=== PATIENT | female | born 1995 | race Hispanic/Latino ===

== ENCOUNTER 2022-02-20 08:53 | Emergency (ER) | payer MEDICAID, OTHER ==
[~2022-02-20] VITALS: Ht 165.1 cm; Wt 74.8 kg
[~2022-02-20 08:53] MED LIST: ACET5SOL2 PO; FERR-82 PO; PREN1COM PO
[2022-02-20 09:31] LABS: APPEARANCE,URINE Clear (CLEAR); BILIRUBIN,URINE Negative (NEGATIVE); COLOR,URINE Yellow (YELLOW); GLUCOSE, URINE (UA) Negative (NEGATIVE); HCG,QUAL RESULT NEGATIVE (NEGATIVE); KETONES,URINE 40 mg/dL (NEGATIVE); LEUKOCYTE ESTERASE ,URINE Negative (NEGATIVE); NITRATE,URINE Negative (NEGATIVE); OCCULT BLOOD,URINE Negative (NEGATIVE); PH,URINE 7.5 (5.0-8.0); PROTEIN,URINE Negative (NEGATIVE)
[2022-02-20 09:36] LABS: BACTERIA,URINE Rare /HPF (None Seen); RBC,URINE 0-1 /HPF (0-1); SQUAMOUS EPITHELIAL CELL,UR Few /HPF (0-2); WBC,URINE 0-1 /HPF (0-1)
[2022-02-20 09:46] LABS: BASOPHILS % (AUTO) 0.3 % (0.0-5.0); HEMATOCRIT 37.9 % (36-48); LYMPHOCYTES % (AUTO) 11.6 % (21.0-51.0); MEAN CORPUSCULAR HGB CONC 32.7 g/dL (32.0-36.0); MEAN CORPUSCULAR VOLUME 91.8 fL (79-99); MONOCYTES % (AUTO) 4.1 % (3.0-13.0); NEUTROPHILS % (AUTO) 83.4 % (40.0-77.0); PLATELET COUNT (AUTO) 261 K/uL (130-400); RED BLOOD CELL COUNT(AUTO) 4.13 MIL/uL (4.00-5.50); RED CELL DISTRIBUTION WIDTH 13.2 % (11.0-15.5); WHITE BLOOD COUNT (AUTO) 17.5 K/uL (4.8-10.8)
[2022-02-20 09:52] LABS: CARBON DIOXIDE 26 mmol/L (21-32); CHLORIDE 104 mmol/L (101-111); CREATININE 0.7 mg/dL (0.5-1.5); GLOMERULAR FILTR. RATE CALC 106 mL/min (>60); GLUCOSE,RANDOM 133 mg/dL (70-105); POTASSIUM 4.1 mmol/L (3.5-5.1); SODIUM SERUM 138 mmol/L (136-145); UREA NITROGEN, BLOOD 12 mg/dL (7-18)
[2022-02-20] MEDS ORDERED: IOHEXOL-350 75 ML VIAL IV ONE (09:53)
[2022-02-20 09:56] LABS: ALANINE AMINOTRANSFERASE 23 U/L (12-78); ALBUMIN 3.5 g/dL (3.5-5.0); ASPARTATE AMINOTRANSFERASE 16 U/L (10-37); BILIRUBIN,TOTAL 0.9 mg/dL (0.2-1.0); TOTAL PROTEIN, SERUM 6.9 g/dL (6.0-8.3)
[2022-02-20 09:57] LABS: LIPASE < 50 U/L (114-286)
[2022-02-20] MEDS ORDERED: 0.9%NACL 1000ML 1,000 ML IV ONE (10:00)
[2022-02-20] MEDS ORDERED: KETOROLAC 30MG VIAL (30MG/ML) IVP ONE (10:00)
[2022-02-20] MEDS ORDERED: ONDANSETRON 4MG INJ IVP ONE (10:00)
[2022-02-20] MEDS ORDERED: MORPHINE 4 MG SYG IVP ONE (10:00)
[2022-02-20] MEDS ORDERED: ACET-2079 PO (12:14)
[2022-02-20] MEDS ORDERED: DICL50TA9 PO (12:14)
[2022-02-20 12:25] VITALS: BP 100/64
== END 2022-02-20 12:39 | disposition home or self-care (01) ==
LOC: EDH 08:53
DX: N83.202 Unspecified ovarian cyst, left side (principal); Z79.1 Long term (current) use of non-steroidal anti-inflammatories (NSAID); Z98.890 Other specified postprocedural states
CPT/HCPCS: 36415; 74177; 76856; 80053; 81001; 83690; 81025; 85025; 96361; 96374; 96375; 99285; J1885; J2270; J2405; J7030; Q9967

== ENCOUNTER 2023-08-21 17:32 | Emergency (ER) | payer OTHER ==
[~2023-08-21] VITALS: Ht 165.1 cm; Wt 77.1 kg
[~2023-08-21 17:32] MED LIST changes: +AMOX1TAB16 PO; +IBUP-1493 PO
[2023-08-21 20:53] VITALS: BP 107/69; PULSE 76; RESP 16; O2SAT 98
[2023-08-21] MEDS ORDERED: MUPI22O TP (21:16)
[2023-08-21] MEDS ORDERED: BACITRACIN 1 EACH PACKET TP ONE ×2 (21:28→21:30)
== END 2023-08-21 21:40 | disposition home or self-care (01) ==
LOC: EDH 17:32
DX: S81.012D Laceration without foreign body, left knee, subsequent encounter (principal); Z79.899 Other long term (current) drug therapy; X58.XXXD Exposure to other specified factors, subsequent encounter

== ENCOUNTER 2025-05-09 20:31 | Emergency (ER) | payer SELFPAY ==
[~2025-05-09] VITALS: Ht 162.6 cm; Wt 77.1 kg
[~2025-05-09 20:31] MED LIST changes: +MUPI22O TP
[2025-05-09] MEDS: HYDROcodone/APAP 5/325 1 TAB TABLET PO ONE (21:04)
--- NOTE | 2025-05-09 22:01 | HMCIMG ---
EXAM: CR right Knee, 3 View. CLINICAL HISTORY: pain, injury COMPARISON: None provided. FINDINGS: BONES: No acute fracture or aggressive appearing osseous lesion. JOINTS: The joint spaces show no significant degenerative disease. There is no joint effusion appreciated. SOFT TISSUES: The soft tissues are unremarkable. IMPRESSION: No acute osseous pathology evident. /[place]
--- NOTE | 2025-05-09 22:05 | ERN ---
ED Note History of Present Illness Stated Complaint: KNEE PAIN, UNABLE TO PUT PRESSURE ON RIGHT LEG Chief Complaint: Knee Injury/Swelling Time Seen by MD: 20:48 Time Seen by Midlevel: 20:48 Dictation: The patient is a 30-year-old female with no past medical history who reports to the emergency department with complaints of right knee pain after she jumped and landed wrong about an hour prior to arrival. Patient denies any falls or any other injuries. Allergies: Coded Allergies: No Known Drug Allergies (Unverified Allergy, Unknown, 06/13/19) Home Meds Active Scripts Mupirocin (Bactroban 2% Oint) 2 % Oint, 1 APPL TP BID, #1 TUBE Prov:FAUSTO CLINTON PAC 08/21/23 Ibuprofen (Motrin/Advil) 800 Mg Tab, 800 MG PO TID, #30 TAB Prov:PABLO MOSS MD 08/11/23 Amoxicillin/Potassium Clav (Amox Tr-K Clv 875-125 mg Tab) 875 Mg-125 Mg Tablet, 1 EACH PO BID, #20 TAB Prov:PABLO MOSS MD 08/11/23 Reported Medications Acetaminophen with Codeine (Acetaminop-Codeine 120-12 mg/5) 5 Ml Solution, 5 ML PO Q6HPRN PRN for PAIN LEVEL 4 TO 6, ML 06/15/19 Ferrous Sulfate (Iron) 325 Mg Tablet, 325 MG PO HS, TAB 06/13/19 Vit #91/Fe Fum/FA/Dha ( + Dha Combo Pack) 1 Each Combo..pkg, 1 EACH PO HS, COMB.PKG 06/13/19 Past Medical History Past Medical History: No Pertinent History Surgical History: None Family History: Negative Social History: Negative, Lives with family, Other RN Note Reviewed/Agreed w/PFSH: Yes Review of System Dictation Constitutional: Negative for fever,chills, and weight loss Eyes: Negative for injury, pain,redness, and discharge ENT: Negative for injury,pain or swelling Cardiovascular: Negative for chest pain, palpitations, and edema Respiratory: Negative for shortness of breath, cough, and wheezing, Abdomen/GI: Negative for abdominal pain, nausea, vomiting, diarrhea, and constipation Back: Negative for injury and pain : Negative for injury, bleeding and discharge MS/Extremity positive for right knee pain Skin: Negative for rash, and discoloration Neuro: Negative for headache, weakness, numbness, tingling, and seizure Psych: Negative for suicide ideation, homicidal ideation, and hallucinations Initial Vital Sign VS Vital Signs Date Time Temp Pulse Resp B/P (MAP) Pulse Ox O2 Delivery O2 Flow Rate FiO2 05/09/25 20:40 98.1 84 16 112/73 99 Room Air 0 Physical Exam Dictation Vital Signs reviewed General Appearance: Alert, oriented x 3, no acute distress, well developed, nourished. Head and Face: non-traumatic. Eyes: PERRL, pink conjunctivas, eyelid no trauma, anterior chamber with arcus senilis. Ears: Pinnas intact and no signs of trauma or erythema ear canals clear and no discharge TM no erythema Nose: No discharge, no bleeding. Oropharynx: Mouth normal, tongue pink. pharynx clear,no erythema, tonsils no exudates, no abscesses noted, mucous membrane moist Neck: Supple, non-tender, no thyromegaly, no masses, no JVD, no bruits Breast:Deferred Chest:No tenderness, no crepitus, no paradoxical movement, no retractions Lungs:Clear, well-ventilated, symmetric, no rales, no wheezing, no rhonchi, no stridor, good breath sounds bilaterally Heart: Regular rate, regular rhythm, no murmur, no gallops Vascular: no peripheral edema, dorsalis pedis 3+ bilaterally Abdomen: Soft, positive bowel sounds, nondistended, no guarding, nontender, no rebound, no masses no hepatomegaly, no splenomegaly, no Mendes's sign, no hernias. Rectal: Deferred Genital: Deferred Neurological: Normal speech, motor function intact, sensory function intact Musculoskeletal: Neck nontender, full range of motion, back nontender, full range of motion, Extremities: nontender, full range of motion , right knee tenderness, full range of motion, no swelling Skin: Color pink, dry, no turgor, no rash, no lacerations, no abrasions, no contusions. Lymphatic: Deferred Results (Laboratory/Radiology) Laboratory/Radiology REASON: pain, injury ORDERING PHYSICIAN: SONDRA KING POLICE AIDE PROCEDURE: KNEE 3V RT - KNEE 3VWS RT EXAM: CR right Knee, 3 View. CLINICAL HISTORY: pain, injury COMPARISON: None provided. FINDINGS: BONES: No acute fracture or aggressive appearing osseous lesion. JOINTS: The joint spaces show no significant degenerative disease. There is no joint effusion appreciated. SOFT TISSUES: The soft tissues are unremarkable. IMPRESSION: No acute osseous pathology evident. Labs Reviewed?: Yes ED Course ED Course Orders Procedure Category Date Status Time Knee 3vws Rt RAD 05/09/25 Resulted 20:52 Hydrocodone/Apap PHA 05/09/25 Complete 5/325 ([place] 5/325mg) 21:00 Knee Immobilizer DIANNA 05/09/25 In Process 22:01 Crutches W/Training CPOE 05/09/25 Transmitted (Er) 22:01 Current Medications Medications (Trade) Dose Ordered Sig/Carlita Route PRN Reason Start Time Stop Time Status Last Admin Dose Admin Acetaminophen/ Hydrocodone Bitart (NORco 5/325MG) 1 tab ONCE ONCE PO 05/09/25 21:00 05/09/25 21:01 DC 05/09/25 21:04 Vital Signs Date Time Temp Pulse Resp B/P (MAP) Pulse Ox O2 Delivery O2 Flow Rate FiO2 05/09/25 20:40 98.1 84 16 112/73 99 Room Air 0 Medical Decision Making MDM The patient is a 30-year-old female with no past medical history who reports to the emergency department with complaints of right knee pain after she jumped and landed wrong about an hour prior to arrival. Patient denies any falls or any other injuries. No obvious fracture seen on x-ray. Patient will be placed in a knee immobilizer and instructed to follow up with orthopedic. Patient in no acute distress, neurovascularly intact. Differential diagnosis: Knee sprain, knee dislocation, fracture Need for hospitalization: Patient does not meet criteria for hospitalization. There are no social concerns with this patient. DX & DISP Disposition: Discharge Departure Impression: Primary Impression: Right knee sprain Condition: Stable Additional Instructions: You need to follow up with the orthopedic in your primary doctor in 1-2 days. If anything worsens please return to ER. There was no obvious fractures on your x-ray. FOLLOW-UP WITH PRIMARY CARE PROVIDER IN 1 TO 2 DAYS. TAKE MEDICATIONS DIRECTED HERE IN THE EMERGENCY ROOM. OKAY TO CONTINUE HOME MEDICATIONS UNLESS OTHERWISE DISCUSSED DURING YOUR VISIT IN THE EMERGENCY ROOM TODAY. RETURN TO YOUR NEAREST EMERGENCY ROOM IF SYMPTOMS WORSEN OR IF THERE IS NO IMPROVEMENT. CALL 911 IF YOU NEED IMMEDIATE ASSISTANCE. TAKE TYLENOL [id number] NEEDED AND IF NO CONTRAINDICATIONS ARE PRESENT. INCREASE ORAL HYDRATION. A WOUND CULTURE OR URINE CULTURE WAS ORDERED HERE IN THE EMERGENCY ROOM DEPARTMENT PLEASE FOLLOW-UP WITH PRIMARY CARE PROVIDER AND ADVISE THEM TO GET REPEAT PORTS FROM OUR FACILITY. IF YOU HAD ANY IMAN WRAP/SPLINTS THAT WERE APPLIED HERE, PLEASE DO NOT REMOVE THEM UNTIL YOU SEE YOUR PRIMARY CARE OR SPECIALTY. Referrals: SELF,REFERRAL (PCP) DELMER COLLAZO MD Time of Disposition: 22:01 I have reviewed the case, and I agree with, Diagnosis and Plan SONDRA KING [facility] May 09, 2025 22:04
[2025-05-09 22:25] VITALS: BP 126/68; PULSE 69; RESP 17; TEMP 98.3; O2SAT 99
== END 2025-05-09 22:26 | disposition home or self-care (01) ==
LOC: EDH 20:31
DX: S83.91XA Sprain of unspecified site of right knee, initial encounter (principal); Z79.1 Long term (current) use of non-steroidal anti-inflammatories (NSAID); W18.39XA Other fall on same level, initial encounter; Y93.89 Activity, other specified; Y92.89 Other specified places as the place of occurrence of the external cause; Y99.8 Other external cause status
CPT/HCPCS: 29505; 73562; 99283